=== PATIENT | female | born 1955 | race Caucasian/White ===

== ENCOUNTER 2016-07-21 13:15 | Emergency (ER) | payer OTHER, MEDICARE ==
[~2016-07-21] VITALS: Ht 162.6 cm; Wt 95.0 kg
[~2016-07-21 13:15] MED LIST: ALL100 PO; ASPI-321 PO; CALCTAB5 PO; CLX20 PO; ENOX80IN INJ; FENO145T26 PO; GLC500 PO; INDSR/120 PO; LATA0.009 INSTIL; SIMV-151 PO; SUMA100T16 PO
[2016-07-21 13:21] VITALS: TEMP 37.1; Ht 162.6 cm; Wt 95.0 kg
[2016-07-21] MEDS ORDERED: FLV1 PO (13:38)
[2016-07-21] MEDS ORDERED: XLTOPS OP (13:38)
[2016-07-21] MEDS ORDERED: PROP120C PO (13:38)
[2016-07-21] MEDS ORDERED: GLCSR/500 PO (13:38)
[2016-07-21] MEDS ORDERED: CALC600T37 PO (13:38)
[2016-07-21] MEDS ORDERED: ASPCH81X PO (13:38)
[2016-07-21 14:02] LABS: BASO % 0.6 %; BASO ABS # 0.04 K/uL (0-0.2); COMPLETE YES; EOS % 8.9 %; HEMATOCRIT 37.9 % (37-47); IG% 0.5 %; LYMPH % 27.7 %; LYMPH ABS # 1.74 K/uL (1.2-3.4); MEAN CELL VOLUME 97.4 fL (80-100); MEAN CORPUSCULAR HEMOGLOBIN 32.1 pg (25-34); MEAN PLATELET VOLUME 10.1 fL (7.4-10.4); MONO % 6.2 %; NEUT % 56.1 %; PLATELET COUNT 189 K/uL (130-400); RED BLOOD COUNT 3.89 M/uL (4.2-5.4); WHITE BLOOD COUNT 6.29 K/uL (4.8-10.8)
--- NOTE | 2016-07-21 14:23 | EMERGENCY ROOM VISIT NOTE ---
History First contact with patient: 13:24 Chief Complaint: LEG PAIN,LEG INJURY Stated Complaint: SWELLING IN LOWER RIGHT LEG WARM AND HURTS History of Present Illness The patient is a 61 year old female who presents to the Emergency Room via private vehicle for evaluation of right lower leg pain and swelling. The patient reports that she has had pain and subjective swelling in the right lower leg for the past one week. She is concerned because she has history of recurrent DVT of the left leg. She states she has had difficulty walking, but this is normal for her due to a leg length discrepancy. She has an IVC filter. She denies any chest pain or shortness of breath. The patient takes 81 mg aspirin daily, but no other anticoagulants. She denies any recent trauma of the leg. She denies erythema, warmth, fevers, numbness or weakness. Review of Systems A complete 6 point review of systems was reviewed with the patient with pertinent positives and negatives as per history of present illness. All else were negative. Past Medical/Surgical History Medical Problems: (1) Diabetes (2) HTN (hypertension) (3) Leg surgery Surgical Problems: (1) H/O abdominal surgery (2) Previous back surgery Family History Diabetes mellitus Hypertension Social History Smoking Status: Never Smoker Marital Status: Housing Status: unknown Occupation Status: disabled Current/Historical Medications Scheduled Allopurinol (Allopurinol), 200 MG PO DAILY Aspirin (Aspirin Chewable), 81 MG PO QAM Calcium (Calcium), 600 MG PO BID Citalopram (Citalopram Hydrobromide), 20 MG PO QAM Enoxaparin (Lovenox), 100 MG SQ Q12 Fenofibrate (Tricor ), 145 MG PO QAM Folic Acid (Folic Acid), 1 MG PO QAM Latanoprost (Latanoprost), 2 DROPS OP HS Metformin HCl (Metformin HCl ER), 500 MG PO BID Propranolol Hcl (Propranolol Hcl Er), 120 MG PO QAM Simvastatin (Simvastatin), 20 MG PO HS Sumatriptan Succinate (Imitrex), 100 MG PO PRN Warfarin Sodium (Coumadin), 5 MG PO UD Allergies Coded Allergies: No Known Allergies (Unverified , 07/21/16) Physical Exam Vital Signs Date Time Temp Pulse Resp B/P Pulse Ox O2 Delivery O2 Flow Rate FiO2 07/21/16 17:04 69 18 131/74 98 07/21/16 15:13 78 16 109/75 94 Room Air 07/21/16 13:21 37.1 69 17 126/83 98 Room Air Physical Exam VITALS: Vitals are noted on the nurse's note and reviewed by myself. Vital signs stable. GENERAL: This is a 61-year-old female, in no acute distress, nondiaphoretic, well-developed well-nourished. SKIN: Capillary reflex less than 2 seconds. HEART: Regular rate and rhythm without murmurs gallops or rubs. LUNGS: Clear to auscultation bilaterally without wheezes, rales or rhonchi. No retractions or accessory muscle use. MUSCULOSKELETAL: No significant erythema, edema or ecchymosis of the right lower leg. No warmth to touch. There is mild tenderness to palpation of the right calf. NEURO: Patient was alert and oriented to person place and time. Medical Decision & Procedures ER Provider Diagnostic Interpretation: ULTRASOUND RIGHT VENOUS DOPP LOWER EXT UNILAT CLINICAL HISTORY: Right leg pain and swelling. COMPARISON STUDY: No previous studies for comparison. FINDINGS: There is extensive right lower extremity acute DVT involving the common femoral, superficial femoral, and popliteal vein. There is also broken flow within the proximal trifurcation veins of the right calf suspicious for areas of thrombus. There is thrombus within the saphenous vein. IMPRESSION: Extensive right lower extremity DVT involving the common femoral, superficial femoral, and popliteal veins. Laboratory Results 07/21/16 13:47 Red Blood Count 3.89, Mean Corpuscular Volume 97.4, Mean Corpuscular Hemoglobin 32.1, Mean Corpuscular Hemoglobin Concent 33.0, Mean Platelet Volume 10.1, Neutrophils (%) (Auto) 56.1, Lymphocytes (%) (Auto) 27.7, Monocytes (%) (Auto) 6.2, Eosinophils (%) (Auto) 8.9, Basophils (%) (Auto) 0.6, Neutrophils # (Auto) 3.53, Lymphocytes # (Auto) 1.74, Monocytes # (Auto) 0.39, Eosinophils # (Auto) 0.56, Basophils # (Auto) 0.04 07/21/16 13:47 Test 07/21/16 13:47 07/21/16 14:35 White Blood Count 6.29 K/uL (4.8-10.8) Red Blood Count 3.89 M/uL (4.2-5.4) Hemoglobin 12.5 g/dL (12.0-16.0) Hematocrit 37.9 % (37-47) Mean Corpuscular Volume 97.4 fL (80-100) Mean Corpuscular Hemoglobin 32.1 pg (25-34) Mean Corpuscular Hemoglobin Concent 33.0 g/dl (32-36) Platelet Count 189 K/uL (130-400) Mean Platelet Volume 10.1 fL (7.4-10.4) Neutrophils (%) (Auto) 56.1 % Lymphocytes (%) (Auto) 27.7 % Monocytes (%) (Auto) 6.2 % Eosinophils (%) (Auto) 8.9 % Basophils (%) (Auto) 0.6 % Neutrophils # (Auto) 3.53 K/uL (1.4-6.5) Lymphocytes # (Auto) 1.74 K/uL (1.2-3.4) Monocytes # (Auto) 0.39 K/uL (0.11-0.59) Eosinophils # (Auto) 0.56 K/uL (0-0.5) Basophils # (Auto) 0.04 K/uL (0-0.2) RDW Standard Deviation 46.5 fL (36.4-46.3) RDW Coefficient of Variation 13.4 % (11.5-14.5) Immature Granulocyte % (Auto) 0.5 % Immature Granulocyte # (Auto) 0.03 K/uL (0.00-0.02) Anion Gap 8.0 mmol/L (3-11) Est Creatinine Clear Calc Drug Dose 44.0 ml/min Estimated GFR () 43.1 Estimated GFR (Non- 37.2 BUN/Creatinine Ratio 14.7 (10-20) Calcium Level 9.1 mg/dl (8.5-10.1) Total Bilirubin 0.8 mg/dl (0.2-1) Aspartate Amino Transf (AST/SGOT) U/L (15-37) Alanine Aminotransferase (ALT/SGPT) 25 U/L (12-78) Alkaline Phosphatase 50 U/L (45-117) Total Protein 7.4 gm/dl (6.4-8.2) Albumin 3.6 gm/dl (3.4-5.0) Globulin 3.8 gm/dl (2.5-4.0) Albumin/Globulin Ratio 0.9 (0.9-2) Prothrombin Time 11.4 SECONDS (9.0-12.0) Prothromb Time International Ratio 1.1 (0.9-1.1) Activated Partial Thromboplast Time 25.0 SECONDS (21.0-31.0) Partial Thromboplastin Ratio 1.0 Medications Administered Medications (Trade) Dose Ordered Sig/[facility] Route Start Time Stop Time Status Last Admin Dose Admin Warfarin Sodium (Coumadin Tab) 10 mg NOW ONCE PO 07/21/16 15:45 07/21/16 15:46 DC 07/21/16 15:55 10 MG Enoxaparin Sodium (Lovenox Inj) 100 mg NOW ONCE SQ 07/21/16 15:45 07/21/16 15:46 DC 07/21/16 16:01 100 MG Medical Decision Differential diagnosis includes DVT, superficial thrombophlebitis, cellulitis, trauma, among others. The patient was evaluated as above. Labs were drawn and IV access was obtained. Imaging studies were performed and read by radiology as above. The patient was medicated as above. The patient was reassessed multiple times during their stay in the emergency department and remained in stable condition. The patient is a 61-year-old female who presents today complaining of right leg swelling. Ultrasound did show an extensive DVT. The patient has had DVTs in the past and has an IVC filter. She does not have any chest pain or shortness of breath to suggest pulmonary embolism. I do feel that the patient can be treated as an outpatient. She has taken Lovenox and Coumadin in the past and is comfortable with this. We did suggest possibly trying Xarelto, but the patient's insurance will not cover this. She was given a first dose of Lovenox and Coumadin in the emergency department and a prescription for the remainder. Case management was able to make the patient an appointment for follow-up with her primary care provider. She will return sooner with worsening or new/ concerning symptoms. Based on the patient's presentation, lab results, and imaging studies, I feel the patient is stable for outpatient treatment. Discharge instructions were reviewed with the patient. The patient verbalized understanding of my assessment and treatment plan and was discharged home in good condition. Impression Primary Impression: Acute DVT (deep venous thrombosis) Departure Information Dispostion Home / Self-Care Condition GOOD Prescriptions Warfarin Sodium (COUMADIN) 5 Mg Tab 5 MG PO UD, #10 TAB Take 2 tablets the first day, then 1 tablet daily until further directed. Prov: Maria R Steiner PA-C 07/21/16 Enoxaparin (LOVENOX) 100 Mg/Ml Inj 100 MG SQ Q12 for 5 Days, #10 SYR Prov: Maria R Steiner PA-C 07/21/16 Referrals Osmani Garcia M.D. (PCP) Patient Instructions My [facility] Additional Instructions Lovenox: 1 injection twice daily until further instructed by Dr. Garcia. Warfarin: Take 2 tablets tomorrow, then 1 tablet daily until further instructed by Dr. Garcia. Follow up with Dr. Garcia's office within 2-3 days. They will call you with an appointment. Return to the emergency department with worsening swelling, chest pain, shortness of breath, or any other new/concerning symptoms. Problem Qualifiers Primary Impression: Acute DVT (deep venous thrombosis) DVT location: lower extremity Affected thrombotic vein of extremity: femoral Laterality: right Qualified Codes: I82.411 - Acute embolism and thrombosis of right femoral vein
[2016-07-21 14:26] LABS: ALB/GLOB RATIO 0.9 (0.9-2); ALKALINE PHOSPHATASE 50 U/L (45-117); ALT/SGPT 25 U/L (12-78); BLOOD UREA NITROGEN 22 mg/dl (7-18); BUN/CREATININE RATIO 14.7 (10-20); CALCIUM 9.1 mg/dl (8.5-10.1); CARBON DIOXIDE 31 mmol/L (21-32); CHLORIDE 105 mmol/L (98-107); GLUCOSE 210 mg/dl (70-99); SODIUM 144 mmol/L (136-145)
--- NOTE | 2016-07-21 14:27 | DIAGNOSTIC IMAGING REPORT ---
ULTRASOUND RIGHT VENOUS DOPP LOWER EXT UNILAT CLINICAL HISTORY: Right leg pain and swelling. COMPARISON STUDY: No previous studies for comparison. FINDINGS: There is extensive right lower extremity acute DVT involving the common femoral, superficial femoral, and popliteal vein. There is also broken flow within the proximal trifurcation veins of the right calf suspicious for areas of thrombus. There is thrombus within the saphenous vein. IMPRESSION: Extensive right lower extremity DVT involving the common femoral, superficial femoral, and popliteal veins. Electronically signed by: Ulisses Meredith M.D. 07/21/2016 2:26 PM Dictated Date/Time: 07/21/2016 2:23 PM
[2016-07-21 15:09] LABS: INR 1.1 (0.9-1.1); PROTHROMBIN TIME (PATIENT) 11.4 SECONDS (9.0-12.0)
[2016-07-21] MEDS ORDERED: WARFARIN SOD 5 MG TAB PO ONE (15:45)
[2016-07-21] MEDS ORDERED: ENOXAPARIN 100 MG/1ML SYR SQ ONE (15:45)
[2016-07-21] MEDS ORDERED: ENOX100I SQ (15:52)
--- NOTE | 2016-07-21 15:54 | EMERGENCY ROOM VISIT NOTE ---
ED Visit Note First contact with patient: 13:24 Staff note: I have reviewed the Patients chart and have discussed this case with my PA. I generally agree with the ED note and findings.
[2016-07-21] MEDS ORDERED: WARF5TAB90 PO (16:21)
[2016-07-21 17:04] VITALS: BP 131/74; PULSE 69; O2SAT 98
== END 2016-07-21 17:07 | disposition home or self-care (01) ==
LOC: C.EDB 13:16 → C.EDC 17:07
DX: I82.411 Acute embolism and thrombosis of right femoral vein (principal); E11.9 Type 2 diabetes mellitus without complications; I10 Essential (primary) hypertension; Z83.3 Family history of diabetes mellitus; Z82.49 Family history of ischemic heart disease and other diseases of the circulatory system; Z79.82 Long term (current) use of aspirin; Z79.899 Other long term (current) drug therapy